=== PATIENT | male | born 1990 | race Caucasian/White ===

== ENCOUNTER 2017-10-28 01:21 | Emergency (ER) | payer MEDICAID ==
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
[2017-10-28] MEDS ORDERED: Bupivacaine 0.5% 10 mL Vial ONE (01:53)
== END 2017-10-28 02:35 | disposition left against medical advice (07) ==
LOC: ER 01:21
DX: S01.01XA Laceration without foreign body of scalp, initial encounter (principal); S01.312A Laceration without foreign body of left ear, initial encounter; F17.200 Nicotine dependence, unspecified, uncomplicated; Y04.0XXA Assault by unarmed brawl or fight, initial encounter; Y93.89 Activity, other specified; Y92.89 Other specified places as the place of occurrence of the external cause; Y99.8 Other external cause status
CPT/HCPCS: 12002; 12011; A4217; J2001; X6530; Z7502; Z7610